=== PATIENT | female | born 1950 | race Two or more races ===

== ENCOUNTER 2021-09-18 10:29 | Emergency (ER) | payer OTHER, MEDICAID ==
[~2021-09-18] VITALS: Ht 147.3 cm; Wt 94.3 kg
[2021-09-18 17:51] VITALS: BP 145/76
== END 2021-09-18 17:06 | disposition home or self-care (01) ==
LOC: ER 10:29
DX: S96.911A Strain of unspecified muscle and tendon at ankle and foot level, right foot, initial encounter (principal); I83.91 Asymptomatic varicose veins of right lower extremity; E11.9 Type 2 diabetes mellitus without complications; X58.XXXA Exposure to other specified factors, initial encounter; Y93.89 Activity, other specified; Y92.89 Other specified places as the place of occurrence of the external cause; Y99.8 Other external cause status
CPT/HCPCS: 93926

== ENCOUNTER 2023-02-23 14:35 | Inpatient (IN) | payer OTHER, MEDICAID ==
[~2023-02-23] VITALS: Ht 147.3 cm; Wt 88.2 kg
[2023-02-23 15:04] LABS: Basophils # (auto) 0.1 10 ^3/uL (0-0.2); Basophils % (auto) 0.5 % (0.0-2.0); Eosinophils # (auto) 0.2 10 ^3/uL (0-0.8); Eosinophils % (auto) 1.6 % (0.0-7.0); Hematocrit 38.3 % (36.0-46.0); Hemoglobin 12.7 g/dL (12.2-16.2); Lymphocytes # (auto) 2.2 10 ^3/uL (0.4-5.4); Lymphocytes % (auto) 22.8 % (10.0-50.0); Mean Corpuscular Hemoglobin 28.6 pg (28.0-32.0); Mean Corpuscular Volume 86.7 fL (80.0-100.0); Monocytes # (auto) 0.6 10 ^3/uL (0-1.3); Monocytes % (auto) 5.8 % (0.0-12.0); Neutrophils # (auto) 6.6 10 ^3/uL (1.6-8.6); Neutrophils % (auto) 69.3 % (37.0-80.0); Red Blood Cells 4.42 10^6/uL (4.0-5.20); Red Cell Distribution Width 14.9 % (11.8-14.3); White Blood Cell 9.6 10^3/uL (4.4-10.8)
[2023-02-23 15:21] LABS: Alanine Aminotransferase 14 U/L (7-40); Albumin 4.4 g/dL (3.2-4.8); Alkaline Phosphatase 97 U/L (46-116); Anion Gap 6 (5-15); Aspartate Aminotransferase 19 U/L (13-40); BUN/Creatinine Ratio 13.4 (10.0-20.0); Blood Urea Nitrogen 11 mg/dL (9-23); Calcium 9.9 mg/dL (8.7-10.4); Carbon Dioxide 29 mmol/L (20-30); Chloride 104 mmol/L (98-107); Glucose 103 mg/dL (74-106); Potassium 4.5 mmol/L (3.5-5.1); Sodium 139 mmol/L (136-145)
[2023-02-23 15:22] LABS: Bilirubin, Total 0.6 mg/dL (0.2-1.0); INR 0.98 (0.9-1.15); Partial Thromboplastin Time 32.2 SEC (24.5-34.5); Prothrombin Time 10.3 sec (9.3-11.8); Total Protein 7.2 g/dL (5.7-8.2)
[2023-02-23] MEDS ORDERED: ASPirin 325 MG TAB PO ONE (16:45)
[2023-02-23] MEDS ORDERED: MORPHINE SULFATE INJ 2 MG/ml SYRG IV PRN (17:45)
[2023-02-23] MEDS ORDERED: DEXTROSE (50%) 50ML SYRG IV PRN (17:45)
[2023-02-23] MEDS ORDERED: NITROGLYCERIN 0.4 MG SL TAB SL PRN (17:45)
[2023-02-23] MEDS ORDERED: APIX5TAB PO (18:03)
[2023-02-23] MEDS ORDERED: LOVA20TA4 PO (18:03)
[2023-02-23] MEDS ORDERED: MEMA1TAB3 PO (18:03)
[2023-02-23] MEDS ORDERED: METF-372 PO (18:03)
[2023-02-23] MEDS ORDERED: DILT30TA PO (18:03)
[2023-02-23] MEDS ORDERED: LEVO-177 PO (18:03)
[2023-02-23] MEDS ORDERED: LISI40TA16 PO (18:03)
[2023-02-23 18:29] LABS: Triglycerides 151 mg/dL (< 150)
[2023-02-23 18:30] LABS: LDL Cholesterol 129 mg/dL (< 100)
[2023-02-23 18:31] LABS: Cholesterol 210 mg/dL (< 200); HDL Cholesterol 68 mg/dL (40-59)
[2023-02-23] MEDS: dilTIAZem HCL 60 MG TAB PO SCH (20:46)
[2023-02-23] MEDS: SODIUM CHLORIDE 0.9% 1,000 ML IV SCH (20:51)
[2023-02-23] MEDS: ACCU-CHEK COMFORT CURVE STRIP VI SCH (22:00)
[2023-02-23] MEDS: PRAVASTATIN SODIUM 20 MG TAB PO SCH (22:00)
[2023-02-23] MEDS: InsuLIN REG 1unit/0.01ml Soln (100units/ml) SC SCH (22:00)
[2023-02-23] MEDS: APIXABAN 5 MG TAB PO SCH (22:00)
[2023-02-23] MEDS: MEMANTINE HCL 5 MG TAB PO SCH (22:00)
[2023-02-23 22:20] VITALS: PULSE 72; RESP 20; O2SAT 98
[2023-02-23 23:45] VITALS: BP_SYST 141; BP_SYST 144; BP_DIAS 66; PULSE 56; RESP 18; TEMP 97.8; O2SAT 98
[2023-02-24] VITALS (7 sets, daily range): BP systolic 100–127; BP diastolic 47–78; PULSE 57–75; RESP 15–18; TEMP 98–98.4; O2SAT 95–98
[2023-02-24] MEDS: dilTIAZem HCL 60 MG TAB PO SCH ×3 (00:45→13:20)
[2023-02-24] MEDS ORDERED: DONE5TAB80 PO (03:39)
[2023-02-24] MEDS ORDERED: TRAZ-227 PO (03:39)
[2023-02-24] MEDS ORDERED: CHOL20002 PO (03:39)
[2023-02-24] MEDS: ACCU-CHEK COMFORT CURVE STRIP VI SCH ×4 (06:03→21:48)
[2023-02-24] MEDS: LEVOTHYROXINE SODIUM 88 MCG TAB PO SCH (06:16)
[2023-02-24 06:45] LABS: Basophils # (auto) 0 10 ^3/uL (0-0.2); Basophils % (auto) 0.5 % (0.0-2.0); Eosinophils # (auto) 0.2 10 ^3/uL (0-0.8); Hematocrit 37.6 % (36.0-46.0); Hemoglobin 12.2 g/dL (12.2-16.2); Lymphocytes # (auto) 2.4 10 ^3/uL (0.4-5.4); Lymphocytes % (auto) 27.9 % (10.0-50.0); Mean Corpuscular Hemoglobin 28.4 pg (28.0-32.0); Mean Corpuscular Hgb Conc. 32.5 g/dL (32.0-36.0); Mean Corpuscular Volume 87.4 fL (80.0-100.0); Monocytes # (auto) 0.5 10 ^3/uL (0-1.3); Monocytes % (auto) 6.1 % (0.0-12.0); Neutrophils # (auto) 5.4 10 ^3/uL (1.6-8.6); Neutrophils % (auto) 63.5 % (37.0-80.0); Red Cell Distribution Width 15.3 % (11.8-14.3); White Blood Cell 8.6 10^3/uL (4.4-10.8)
[2023-02-24 06:58] LABS: Alanine Aminotransferase 12 U/L (7-40); Alkaline Phosphatase 86 U/L (46-116); Anion Gap 8 (5-15); Aspartate Aminotransferase 17 U/L (13-40); Blood Urea Nitrogen 9 mg/dL (9-23); Calcium 9.7 mg/dL (8.5-10.1); Carbon Dioxide 27 mmol/L (20-30); Chloride 106 mmol/L (98-107); Glucose 97 mg/dL (74-106); Sodium 141 mmol/L (136-145)
[2023-02-24 06:59] LABS: Bilirubin, Total 0.6 mg/dL (0.2-1.0); Total Protein 6.8 g/dL (5.7-8.2)
[2023-02-24] MEDS: MEMANTINE HCL 5 MG TAB PO SCH ×2 (09:55→21:47)
[2023-02-24] MEDS: LISINOPRIL 20 MG TAB PO SCH (09:55)
[2023-02-24] MEDS: SODIUM CHLORIDE 0.9% 1,000 ML IV SCH (09:56)
[2023-02-24] MEDS: ASPirin 81 mg TAB PO SCH (09:56)
[2023-02-24] MEDS: APIXABAN 5 MG TAB PO SCH (09:56)
[2023-02-24] MEDS ORDERED: ENOXAPARIN SOD 40 MG/0.4 ML SYRINGE SC SCH (10:00)
[2023-02-24] MEDS: InsuLIN REG 1unit/0.01ml Soln (100units/ml) SC SCH ×3 (11:30→21:52)
[2023-02-24] MEDS: ACETAMINOPHEN 325 MG TAB PO PRN (15:23)
[2023-02-24] MEDS: PRAVASTATIN SODIUM 20 MG TAB PO SCH (21:47)
[2023-02-24] MEDS: ENOXAPARIN SOD 100 MG/1 ML SYRINGE SC SCH (21:48)
[2023-02-25] VITALS (11 sets, daily range): BP systolic 113–145; BP diastolic 60–80; PULSE 57–78; RESP 16–18; TEMP 97.8–98.2; O2SAT 93–99
[2023-02-25] MEDS: SODIUM CHLORIDE 0.9% 1,000 ML IV SCH ×2 (03:08→19:45)
[2023-02-25 04:58] LABS: Urine Bacteria FEW /hpf (None Seen); Urine Blood 3+ /uL (Negative); Urine Clarity Clear (Clear); Urine Color Colorless (Yellow); Urine Protein, UAD Negative (Negative); Urine Specific Gravity 1.008 (1.001-1.035); Urine Urobilinogen Normal (Negative); Urine WBC 1 /hpf (0 - 5)
[2023-02-25 05:48] LABS: Basophils # (auto) 0 10 ^3/uL (0-0.2); Basophils % (auto) 0.6 % (0.0-2.0); Eosinophils # (auto) 0.1 10 ^3/uL (0-0.8); Eosinophils % (auto) 2.2 % (0.0-7.0); Hematocrit 39.2 % (36.0-46.0); Hemoglobin 12.8 g/dL (12.2-16.2); Lymphocytes % (auto) 28.7 % (10.0-50.0); Mean Corpuscular Hemoglobin 28.7 pg (28.0-32.0); Mean Corpuscular Hgb Conc. 32.6 g/dL (32.0-36.0); Monocytes # (auto) 0.4 10 ^3/uL (0-1.3); Monocytes % (auto) 5.3 % (0.0-12.0); Neutrophils # (auto) 4.3 10 ^3/uL (1.6-8.6); Neutrophils % (auto) 63.2 % (37.0-80.0); Nucleated Red Blood Cells % 0.1 %; Red Blood Cells 4.45 10^6/uL (4.0-5.20); Red Cell Distribution Width 14.8 % (11.8-14.3); White Blood Cell 6.8 10^3/uL (4.4-10.8)
[2023-02-25 05:58] LABS: Anion Gap 5 (5-15); Carbon Dioxide 27 mmol/L (20-30); Chloride 107 mmol/L (98-107); Potassium 4.2 mmol/L (3.5-5.1); Sodium 139 mmol/L (136-145)
[2023-02-25 05:59] LABS: Calcium 9.2 mg/dL (8.7-10.4)
[2023-02-25 06:03] LABS: INR 1.02 (0.9-1.15); Prothrombin Time 10.7 sec (9.3-11.8)
[2023-02-25 06:04] LABS: Blood Urea Nitrogen 8 mg/dL (9-23); Glucose 105 mg/dL (74-106)
[2023-02-25] MEDS: LEVOTHYROXINE SODIUM 88 MCG TAB PO SCH (06:40)
[2023-02-25] MEDS: ACCU-CHEK COMFORT CURVE STRIP VI SCH ×4 (06:40→22:09)
[2023-02-25] MEDS: InsuLIN REG 1unit/0.01ml Soln (100units/ml) SC SCH ×4 (06:40→22:00)
[2023-02-25] MEDS: dilTIAZem 120MG ER CAP PO SCH (09:57)
[2023-02-25] MEDS: MEMANTINE HCL 5 MG TAB PO SCH ×2 (09:58→22:09)
[2023-02-25] MEDS: LISINOPRIL 20 MG TAB PO SCH (09:58)
[2023-02-25] MEDS: ASPirin 81 mg TAB PO SCH (09:58)
[2023-02-25] MEDS: ENOXAPARIN SOD 100 MG/1 ML SYRINGE SC SCH ×2 (09:58→22:08)
[2023-02-25] MEDS ORDERED: LORazepam 2MG/ML-1ML VIAL IV ONE (12:15)
[2023-02-25] MEDS ORDERED: LIDOCAINE 2%HCL (LOCAL ANESTH.) INJ 20ML MDV ONE (14:42)
[2023-02-25] MEDS ORDERED: IODIXANOL 320MG/ML 100ML BTL IV ONE (14:42)
[2023-02-25] MEDS ORDERED: VERAPAMIL 2.5MG/ML INJ 2ML VIAL IV ONE (14:47)
[2023-02-25] MEDS ORDERED: HEPARIN SODIUM (PORCINE) 5000 UNITS/ML 1ML VIAL ONE (14:47)
[2023-02-25] MEDS ORDERED: ANGIOMAX 250 MG VIAL IV ONE (14:47)
[2023-02-25] MEDS ORDERED: fentaNYL CITRATE 100 MCG/2 ML VL ONE (14:48)
[2023-02-25] MEDS ORDERED: SODIUM CHL 0.9% 0 ML ONE (14:48)
[2023-02-25] MEDS ORDERED: MIDAZOLAM HCL 2MG/2ML 2ml VIAL (1mg/ml) ONE (14:48)
[2023-02-25] MEDS: PRAVASTATIN SODIUM 20 MG TAB PO SCH (22:08)
[2023-02-26] MEDS: SODIUM CHLORIDE 0.9% 1,000 ML IV SCH (04:46)
[2023-02-26 05:00] VITALS: BP 132/62; PULSE 62; RESP 16; TEMP 98.2; O2SAT 96
[2023-02-26] MEDS: InsuLIN REG 1unit/0.01ml Soln (100units/ml) SC SCH ×2 (06:32→11:30)
[2023-02-26] MEDS: LEVOTHYROXINE SODIUM 88 MCG TAB PO SCH (06:32)
[2023-02-26] MEDS: ACCU-CHEK COMFORT CURVE STRIP VI SCH ×2 (06:32→11:30)
[2023-02-26 08:00] VITALS: BP 120/78; PULSE 66; PULSE 77; RESP 17; TEMP 98.4; O2SAT 98
[2023-02-26 08:41] VITALS: BP 120/78; PULSE 66; RESP 17; TEMP 98.4; O2SAT 98
[2023-02-26] MEDS: dilTIAZem 120MG ER CAP PO SCH (09:26)
[2023-02-26] MEDS: LISINOPRIL 20 MG TAB PO SCH (09:26)
[2023-02-26] MEDS: ASPirin 81 mg TAB PO SCH (09:26)
[2023-02-26] MEDS: ACETAMINOPHEN 325 MG TAB PO PRN (09:26)
[2023-02-26] MEDS: MEMANTINE HCL 5 MG TAB PO SCH (09:27)
[2023-02-26] MEDS: ENOXAPARIN SOD 100 MG/1 ML SYRINGE SC SCH (09:27)
[2023-02-26] MEDS ORDERED: DILT120T8 PO (11:30)
[2023-02-26 12:29] VITALS: BP 132/75; PULSE 68; RESP 18; TEMP 98.7; O2SAT 92
[2023-02-26 12:34] VITALS: BP 120/78; PULSE 66; TEMP 37.1
[2023-03-04] MEDS ORDERED: LEVO112C3 PO (10:12)
[2023-03-04] MEDS ORDERED: BACL20TA PO (10:12)
== END 2023-02-26 15:24 | disposition home or self-care (01) | DRG 286 ==
LOC: ER 14:35 → TELE 18:02 → TELE-WESTW 22:49
PROVIDERS: ADMIT Nurse Practitioner Family; ATTEND Family Medicine
PROC: 4A023N7 Measurement of Cardiac Sampling and Pressure, Left Heart, Percutaneous Approach (ICD-10-PCS; principal; 2023-02-25)
PROC: B211YZZ Fluoroscopy of Multiple Coronary Arteries using Other Contrast (ICD-10-PCS; 2023-02-25)
PROC: B215YZZ Fluoroscopy of Left Heart using Other Contrast (ICD-10-PCS; 2023-02-25)
DX: I25.10 Atherosclerotic heart disease of native coronary artery without angina pectoris (principal); I50.31 Acute diastolic (congestive) heart failure; I24.9 Acute ischemic heart disease, unspecified; Z68.41 Body mass index [BMI] 40.0-44.9, adult; I10 Essential (primary) hypertension; E03.9 Hypothyroidism, unspecified; E66.01 Morbid (severe) obesity due to excess calories; I48.91 Unspecified atrial fibrillation; E78.00 Pure hypercholesterolemia, unspecified; E11.51 Type 2 diabetes mellitus with diabetic peripheral angiopathy without gangrene; F03.90 Unspecified dementia, unspecified severity, without behavioral disturbance, psychotic disturbance, mood disturbance, and anxiety; E11.9 Type 2 diabetes mellitus without complications; R00.0 Tachycardia, unspecified; M81.0 Age-related osteoporosis without current pathological fracture; Z79.899 Other long term (current) drug therapy; Z82.49 Family history of ischemic heart disease and other diseases of the circulatory system; Z95.820 Peripheral vascular angioplasty status with implants and grafts; Z71.3 Dietary counseling and surveillance
CPT/HCPCS: 36415; 70450; 71045; 80048; 80053; 80061; 81001; 82962; 83036; 84443; 84484; 85025; 85379; 85610; 85730; 86850; 86900; 86901; 87081; 93005; 93306; 93458; 93970; 99152; G0378; J2250; Q9967

== ENCOUNTER 2023-03-10 13:03 | Day surgery (SDC) | payer OTHER, MEDICAID ==
[2023-03-04 10:16] LABS: Basophils # (auto) 0 10 ^3/uL (0-0.2); Basophils % (auto) 0.6 % (0.0-2.0); Eosinophils # (auto) 0.1 10 ^3/uL (0-0.8); Eosinophils % (auto) 1.5 % (0.0-7.0); Hematocrit 40.1 % (36.0-46.0); Hemoglobin 13.2 g/dL (12.2-16.2); Lymphocytes # (auto) 1.5 10 ^3/uL (0.4-5.4); Lymphocytes % (auto) 20.3 % (10.0-50.0); Mean Corpuscular Hemoglobin 29.2 pg (28.0-32.0); Mean Corpuscular Volume 88.4 fL (80.0-100.0); Monocytes # (auto) 0.4 10 ^3/uL (0-1.3); Monocytes % (auto) 5.2 % (0.0-12.0); Neutrophils # (auto) 5.3 10 ^3/uL (1.6-8.6); Neutrophils % (auto) 72.4 % (37.0-80.0); Red Blood Cells 4.53 10^6/uL (4.0-5.20); Red Cell Distribution Width 15.5 % (11.8-14.3); White Blood Cell 7.3 10^3/uL (4.4-10.8)
[2023-03-04 10:41] LABS: INR 0.97 (0.9-1.15); Prothrombin Time 10.2 sec (9.3-11.8)
[2023-03-04 11:11] LABS: Alanine Aminotransferase 18 U/L (7-40); Alkaline Phosphatase 102 U/L (46-116); Anion Gap 9 (5-15); Calcium 10.1 mg/dL (8.5-10.1); Carbon Dioxide 26 mmol/L (20-30); Chloride 104 mmol/L (98-107); Glucose 116 mg/dL (74-106); Potassium 4.9 mmol/L (3.5-5.1); Sodium 139 mmol/L (136-145)
[2023-03-04 11:12] LABS: BUN/Creatinine Ratio 15.7 (10.0-20.0); Blood Urea Nitrogen 14 mg/dL (9-23)
[2023-03-04 11:13] LABS: Albumin 4.6 g/dL (3.2-4.8); Aspartate Aminotransferase 10 U/L (13-40)
[2023-03-04 11:14] LABS: Bilirubin, Total 0.6 mg/dL (0.2-1.0); Total Protein 7.7 g/dL (5.7-8.2)
[~2023-03-10] VITALS: Ht 147.3 cm; Wt 89.4 kg
[~2023-03-10 13:03] MED LIST: APIX5TAB PO; BACL20TA PO; CHOL20002 PO; DILT120T8 PO; DONE5TAB80 PO; LEVO112C3 PO; LISI40TA16 PO; LOVA20TA4 PO; MEMA1TAB3 PO; METF-372 PO; TRAZ-227 PO
[2023-03-10] MEDS ORDERED: LIDOCAINE VISCOUS 2% 15ML UD ONE (13:44)
[2023-03-10] MEDS ORDERED: SODIUM CHLORIDE LOCK 10 ML ONE (13:44)
[2023-03-10 14:45] VITALS: O2SAT 98
[2023-03-10] MEDS: MIDAZOLAM HCL 5 MG/ML-1ML VIAL ONE ×2 (14:53→14:57)
[2023-03-10] MEDS: diphenhdrAMINE HCL 50 MG/1 ML VL ONE ×2 (14:53→14:55)
[2023-03-10] MEDS: fentaNYL CITRATE 100 MCG/2 ML VL ONE ×2 (14:53→15:00)
[2023-03-10 15:06] VITALS: TEMP 97.4; O2SAT 97
[2023-03-10 15:46] VITALS: BP 117/55; PULSE 62; RESP 13; O2SAT 95
== END 2023-03-10 15:50 | disposition home or self-care (01) ==
LOC: GI 13:03
PROVIDERS: ATTEND Internal Medicine Gastroenterology
DX: K21.9 Gastro-esophageal reflux disease without esophagitis (principal); R13.12 Dysphagia, oropharyngeal phase; K44.9 Diaphragmatic hernia without obstruction or gangrene; K29.90 Gastroduodenitis, unspecified, without bleeding; K25.9 Gastric ulcer, unspecified as acute or chronic, without hemorrhage or perforation
CPT/HCPCS: 36415; 43239; 43450; 80053; 82962; 85025; 85610; 85730; 88305; 88312; 88342; J1200; J2250; J3010; J7030

== ENCOUNTER → 2023-03-24 | Outpatient (CLI) | payer OTHER ==
[2023-03-24 09:03] VITALS: BP 146/70; PULSE 62; RESP 16; O2SAT 96
[2023-03-24 09:18] VITALS: BP 129/67; PULSE 62; RESP 16; O2SAT 96
== END | disposition home or self-care (01) ==
LOC: CHF HDHVI 08:53
PROVIDERS: ATTEND Internal Medicine Cardiovascular Disease
DX: Z01.818 Encounter for other preprocedural examination (principal); I49.9 Cardiac arrhythmia, unspecified; R06.02 Shortness of breath; I25.110 Atherosclerotic heart disease of native coronary artery with unstable angina pectoris
CPT/HCPCS: 93005; G0463

== ENCOUNTER 2023-03-25 07:05 | Day surgery (SDC) | payer OTHER, MEDICAID ==
[2023-03-24 11:25] LABS: Basophils # (auto) 0 10 ^3/uL (0-0.2); Basophils % (auto) 0.6 % (0.0-2.0); Eosinophils # (auto) 0.1 10 ^3/uL (0-0.8); Eosinophils % (auto) 1.1 % (0.0-7.0); Hematocrit 40.3 % (36.0-46.0); Hemoglobin 13.2 g/dL (12.2-16.2); Lymphocytes # (auto) 2.1 10 ^3/uL (0.4-5.4); Mean Corpuscular Hemoglobin 28.8 pg (28.0-32.0); Mean Corpuscular Hgb Conc. 32.7 g/dL (32.0-36.0); Monocytes # (auto) 0.4 10 ^3/uL (0-1.3); Monocytes % (auto) 5.2 % (0.0-12.0); Neutrophils # (auto) 5.6 10 ^3/uL (1.6-8.6); Neutrophils % (auto) 68.1 % (37.0-80.0); Nucleated Red Blood Cells % 0.1 %; Red Blood Cells 4.58 10^6/uL (4.0-5.20); Red Cell Distribution Width 15.1 % (11.8-14.3); White Blood Cell 8.2 10^3/uL (4.4-10.8)
[2023-03-24 11:42] LABS: INR 0.98 (0.9-1.15); Partial Thromboplastin Time 28.2 SEC (24.5-34.5); Prothrombin Time 10.3 sec (9.3-11.8)
[2023-03-24 11:43] LABS: Chloride 105 mmol/L (98-107); Potassium 4.5 mmol/L (3.5-5.1); Sodium 139 mmol/L (136-145)
[2023-03-24 11:44] LABS: Anion Gap 5 (5-15); Calcium 10.3 mg/dL (8.5-10.1); Carbon Dioxide 29 mmol/L (20-30)
[2023-03-24 11:49] LABS: BUN/Creatinine Ratio 12.5 (10.0-20.0); Blood Urea Nitrogen 10 mg/dL (9-23); Glucose 105 mg/dL (74-106)
[2023-03-25] VITALS (8 sets, daily range): BP systolic 89–115; BP diastolic 39–67; PULSE 65–69; RESP 11–14; TEMP 97.8; O2SAT 91–93
[~2023-03-25] VITALS: Ht 147.3 cm; Wt 89.4 kg
[2023-03-25] MEDS ORDERED: MIDAZOLAM HCL 2MG/2ML 2ml VIAL (1mg/ml) ONE (10:16)
[2023-03-25] MEDS ORDERED: LIDOCAINE 2%HCL (LOCAL ANESTH.) INJ 20ML MDV ONE (10:16)
[2023-03-25] MEDS ORDERED: VANCOMYCIN HCL 1000 MG VL ONE (10:16)
[2023-03-25] MEDS ORDERED: fentaNYL CITRATE 100 MCG/2 ML VL ONE (10:16)
[2023-03-25] MEDS ORDERED: VANCOMYCIN 1GM/200ML 200 ML IV ONE (10:17)
[2023-03-25] MEDS ORDERED: HYDROmorphone HCL 2 MG/ML VL/or syr ONE (11:06)
== END 2023-03-25 14:08 | disposition home or self-care (01) ==
LOC: CATH 07:05
PROVIDERS: ATTEND Internal Medicine Cardiovascular Disease
DX: I44.30 Unspecified atrioventricular block (principal); F41.8 Other specified anxiety disorders; Z82.49 Family history of ischemic heart disease and other diseases of the circulatory system; Z98.890 Other specified postprocedural states
CPT/HCPCS: 33208; 36415; 71045; 80048; 85025; 85610; 85730; 93005; C1785; C1898; J1170; J2250; J3010; J3370; J7030; 99152; 99153

== ENCOUNTER 2023-12-21 10:26 | Day surgery (SDC) | payer OTHER, MEDICAID ==
[2023-12-17 15:35] LABS: Basophils # (auto) 0 10 ^3/uL (0-0.2); Basophils % (auto) 0.6 % (0.0-2.0); Eosinophils # (auto) 0.1 10 ^3/uL (0-0.8); Eosinophils % (auto) 1.4 % (0.0-7.0); Hematocrit 37.4 % (36.0-46.0); Hemoglobin 12.4 g/dL (12.2-16.2); Lymphocytes # (auto) 1.7 10 ^3/uL (0.4-5.4); Lymphocytes % (auto) 24.6 % (10.0-50.0); Mean Corpuscular Hemoglobin 29.1 pg (28.0-32.0); Mean Corpuscular Hgb Conc. 33.1 g/dL (32.0-36.0); Monocytes # (auto) 0.5 10 ^3/uL (0-1.3); Monocytes % (auto) 6.9 % (0.0-12.0); Neutrophils # (auto) 4.6 10 ^3/uL (1.6-8.6); Neutrophils % (auto) 66.5 % (37.0-80.0); Platelet Count (auto) 271 10^3/uL (140-450); Red Blood Cells 4.26 10^6/uL (4.0-5.20); Red Cell Distribution Width 14.6 % (11.8-14.3)
[2023-12-17 15:56] LABS: Alanine Aminotransferase 14 U/L (7-40); Albumin 4.2 g/dL (3.2-4.8); Alkaline Phosphatase 115 U/L (46-116); Anion Gap 5 (5-15); Aspartate Aminotransferase 11 U/L (13-40); BUN/Creatinine Ratio 14.3 (10.0-20.0); Blood Urea Nitrogen 13 mg/dL (9-23); Carbon Dioxide 30 mmol/L (20-31); Chloride 108 mmol/L (98-107); Glucose 95 mg/dL (74-106); Potassium 4.2 mmol/L (3.5-5.1); Sodium 143 mmol/L (136-145)
[2023-12-17 15:57] LABS: Bilirubin, Total 0.6 mg/dL (0.2-1.0); Total Protein 7.1 g/dL (5.7-8.2)
[2023-12-17 16:25] LABS: INR 0.97 (0.9-1.15); Partial Thromboplastin Time 27.9 SEC (24.5-34.5); Prothrombin Time 10.3 sec (9.3-11.8)
[~2023-12-21] VITALS: Ht 147.3 cm; Wt 84.8 kg
[~2023-12-21 10:26] MED LIST changes: +AMIO200T33 PO; -DILT120T8 PO; +LORA-622 PO; +OME20T PO
[2023-12-21 10:35] VITALS: TEMP 97.5
[2023-12-21] MEDS ORDERED: SODIUM CHLORIDE LOCK 10 ML ONE (11:13)
[2023-12-21 11:50] VITALS: O2SAT 97
[2023-12-21] MEDS: MIDAZOLAM HCL 5 MG/ML-1ML VIAL ONE (11:52)
[2023-12-21] MEDS: fentaNYL CITRATE 100 MCG/2 ML VL ONE (11:52)
[2023-12-21] MEDS: diphenhdrAMINE HCL 50 MG/1 ML VL ONE (11:52)
[2023-12-21 12:08] VITALS: PULSE 70; RESP 14; O2SAT 98
--- NOTE | 2023-12-21 12:21 | DVHOP2 ---
Operative Report DATE OF OPERATION: 12/21/23 PROCEDURE: Diagnostic Colonoscopy. PREOPERATIVE INDICATION: The patient is a 73 -year-old female undergoing colonoscopy for colon cancer screening POSTOPERATIVE DIAGNOSES: 1. Moderate scattered diverticular disease most prominent in the left colon 2. Trace internal hemorrhoids otherwise normal examination up to the cecum and terminal ileum PROCEDURE PERFORMED BY: Bettye De León M.D. SCOPE: Olympus videocolonoscope. ASA CLASS: 3. PREOPERATIVE MEDICATIONS: Versed three mg, Fentanyl 75 mcg, Benadryl 50 mg PROCEDURE IN DETAIL: After obtaining an informed consent, the patient was placed on left lateral decubitus position. She was then sedated with the above medications. A rectal examination was performed that was normal. The colonoscope was then passed through the anus into the rectosigmoid and through the descending, transverse, and ascending colon up to the cecum with visualization of the appendiceal orifice, base of the cecum and the ileocecal valve. The colonoscope was then withdrawn. The distal 5-10 cm of the terminal ileum were normal. There were no masses or colitis. There were no polyps. Patient did have moderate scattered diverticular disease. This was most prominent in the left colon. On retroflexion and straight on view she had trace internal hemorrhoids The patient tolerated the procedure well without difficulty. WITHDRAWAL TIME: 6 minutes QUALITY OF THE PREP: [place] Bowel Prep score: 9. COMPLICATIONS : None SPECIMENS: None DISPOSITION: Stable D/C to home PLAN: 1. Repeat colonoscopy in 10 years 2. Resume GI soft diet advance as tolerated 3. Increase fluid and fiber intake 4. Outpatient follow up with me in 4-6 weeks to review results and discuss further management BETTYE DE LEÓN MD Dec 21, 2023 12:21
[2023-12-21 13:00] VITALS: BP 150/56; PULSE 65; RESP 13; O2SAT 97
== END 2023-12-21 13:10 | disposition home or self-care (01) ==
LOC: GI 10:26
PROVIDERS: ATTEND Internal Medicine Gastroenterology
DX: Z12.11 Encounter for screening for malignant neoplasm of colon (principal); K57.30 Diverticulosis of large intestine without perforation or abscess without bleeding; K64.8 Other hemorrhoids; I10 Essential (primary) hypertension; E11.9 Type 2 diabetes mellitus without complications; I25.10 Atherosclerotic heart disease of native coronary artery without angina pectoris; E03.9 Hypothyroidism, unspecified; Z79.899 Other long term (current) drug therapy; Z86.73 Personal history of transient ischemic attack (TIA), and cerebral infarction without residual deficits; Z86.0100 Personal history of colon polyps, unspecified; Z95.0 Presence of cardiac pacemaker; Z79.82 Long term (current) use of aspirin
CPT/HCPCS: 36415; 45378; 80053; 82962; 85025; 85610; 85730; J1200; J2250; J3010; J7030; 99152

== ENCOUNTER 2024-05-03 09:58 | Inpatient (IN) | payer OTHER, MEDICAID ==
[2024-05-01 14:19] LABS: Basophils # (auto) 0 10 ^3/uL (0-0.2); Basophils % (auto) 0.5 % (0.0-2.0); Eosinophils # (auto) 0.1 10 ^3/uL (0-0.8); Eosinophils % (auto) 1.3 % (0.0-7.0); Hematocrit 40.1 % (36.0-46.0); Hemoglobin 13.4 g/dL (12.2-16.2); Lymphocytes % (auto) 25.8 % (10.0-50.0); Mean Corpuscular Hemoglobin 29.8 pg (28.0-32.0); Mean Corpuscular Hgb Conc. 33.3 g/dL (32.0-36.0); Mean Corpuscular Volume 89.5 fL (80.0-100.0); Monocytes # (auto) 0.4 10 ^3/uL (0-1.3); Neutrophils # (auto) 5.2 10 ^3/uL (1.6-8.6); Neutrophils % (auto) 67.4 % (37.0-80.0); Platelet Count (auto) 264 10^3/uL (140-450); Red Blood Cells 4.48 10^6/uL (4.0-5.20); Red Cell Distribution Width 14.4 % (11.8-14.3); White Blood Cell 7.7 10^3/uL (4.4-10.8)
[2024-05-01 14:23] LABS: Urine Bacteria FEW /hpf (None Seen); Urine Blood TRACE /uL (Negative); Urine Clarity Clear (Clear); Urine Color Light-Yellow (Yellow); Urine Protein, UAD Negative (Negative); Urine Specific Gravity 1.011 (1.001-1.035); Urine Squamous Epithelial Cell FEW /hpf (<5); Urine Urobilinogen Normal (Negative); Urine WBC 2 /HPF (0-5); Urine pH 5.5 (5.0-9.0)
[2024-05-01 14:34] LABS: INR 0.95 (0.9-1.15); Prothrombin Time 10.1 sec (9.3-11.8)
[2024-05-01 15:32] LABS: Alanine Aminotransferase 13 U/L (7-40); Alkaline Phosphatase 102 U/L (46-116); Anion Gap 7 (5-15); Aspartate Aminotransferase 16 U/L (13-40); Bilirubin, Total 0.9 mg/dL (0.2-1.0); Blood Urea Nitrogen 13 mg/dL (9-23); Carbon Dioxide 30 mmol/L (20-31); Chloride 102 mmol/L (98-107); Glucose 103 mg/dL (74-106); Potassium 4.4 mmol/L (3.5-5.1); Sodium 139 mmol/L (136-145); Total Protein 7.7 g/dL (5.7-8.2)
[2024-05-01 15:35] LABS: Albumin 4.8 g/dL (3.2-4.8); Calcium 10.9 mg/dL (8.7-10.4)
[~2024-05-03] VITALS: Ht 147.3 cm; Wt 100.5 kg
[~2024-05-03 09:58] MED LIST changes: +DONE1TAB88 PO; -DONE5TAB80 PO; -MEMA1TAB3 PO; +MEMA1TAB5 PO; -TRAZ-227 PO; +TRAZ-228 PO
[2024-05-03] MEDS: BUPIVACAINE 0.5% P/F INJ 10 ML VIAL ONE (12:41)
[2024-05-03] MEDS ORDERED: SODIUM CHLORIDE LOCK 10 ML ONE (12:46)
[2024-05-03] MEDS ORDERED: ONDANSETRON HCL 4 MG/2 ML VIAL ONE (12:46)
[2024-05-03] MEDS ORDERED: MIDAZOLAM HCL 2MG/2ML 2ml VIAL (1mg/ml) ONE (12:46)
[2024-05-03] MEDS ORDERED: PROPOFOL 10 MG/ML 20 ML IV ONE (12:46)
[2024-05-03] MEDS ORDERED: LIDOCAINE 1% INJ PF 5ML AMP ONE (12:46)
[2024-05-03] MEDS ORDERED: fentaNYL CITRATE 100 MCG/2 ML VL ONE (12:46)
[2024-05-03] MEDS: ceFAZolin 2 GM/D5W100ml 100 ML IV ONE (13:05)
[2024-05-03 14:10] VITALS: O2SAT 95
[2024-05-03] MEDS ORDERED: METOCLOPRAMIDE HCL 5MG/ml INJ 2ml VIAL IV ONE (14:30)
[2024-05-03] MEDS ORDERED: ACCU-CHEK COMFORT CURVE STRIP VI ONE (14:30)
[2024-05-03] MEDS ORDERED: HYDROmorphone HCL 2 MG/ML VL/or syr IV PRN ×2 (14:30)
[2024-05-03] MEDS ORDERED: MORPHINE SULFATE INJ 2 MG/ml SYRG IV PRN (14:30)
[2024-05-03] MEDS ORDERED: MORPHINE SULFATE 4 MG/ML SYR/VIAL IV PRN (14:30)
[2024-05-03] MEDS ORDERED: NITROGLYCERIN 0.4 MG SL TAB SL PRN (14:30)
[2024-05-03] MEDS ORDERED: LACTATED RINGER'S 1,000 ML IV SCH (14:30)
[2024-05-03] MEDS ORDERED: ONDANSETRON HCL 4 MG/2 ML VIAL IV PRN (14:30)
[2024-05-03] MEDS ORDERED: BISACODYL 5 MG EC TAB PO PRN (14:30)
--- NOTE | 2024-05-03 14:30 | DVHOP2 ---
Operative Report - 2 Report Details Date: 05/03/24 Preop Diagnosis: Right knee patella fracture Postop Diagnosis: same Surgeon: Jasper Petit MD Rn Imcu: none Anesthesiologist: Dr Ortiz Anesthesia: Regional Drains: none Implant: two cannulated screws Consent: The patient was informed of the risks and benefits of the procedure. These include but are not limited to complications of anesthesia, postoperative infection, incomplete relief of symptoms, recurrence of symptoms, damage to blood vessels, nerves and tendons, deep venous thrombosis, pulmonary embolism and possible need for repeat surgery in the future. Complications: none Estimated Blood Loss: 20 cc Fluids: 1 L crystalloid Findings: patella fracture, inferior 1/3, chronic with 1 cm gap, scar Indications for Surgery: Right leg extensor lag, requiring knee immobilizer for ambulation with walker Name of Procedure Performed Right patella open reduction internal fixation Procedure Details Procedure Details: Patient brought to the operating room received Ancef 1 g IV piggyback preoperatively no tourniquet on right thigh sterile prep and drape right lower extremity time-out performed comprehension right-sided correct site open reduction internal fixation of right patella fracture correct procedure after review of operative consent history and physical my initials and right knee anterior incision made centered over patella for a total length of 10 cm sharp dissection through skin down to deep fascia the need point needle point Bovie cautery used to elevate the fascia off the anterior aspect of the patella and the inferior patellar fragment curettage then used to remove scar from fracture site then arthrotomy was made on the medial capsule for digital palpation while a orthopedic reduction clamp was placed across the fracture with no step-off palpated manually C-arm fluoro confirmed anatomic alignment of fracture and two cannulated screws placed vertically and parallel across fracture then [place] tape passed through these cannulated screws and then tied together in a figure- eight fashion C-arm fluoro taken again showing anatomic alignment of fracture digital palpation shows no step-off and I could flex the knee to 90 with no gapping of fracture excellent hemostasis noted irrigation performed closure subcutaneous 2-0 Vicryl and skin jay no drains specimens complications Specimen: none Condition Stable Disposition Still a Patient JASPER PETIT MD May 03, 2024 14:30
--- NOTE | 2024-05-03 14:38 | DVH ---
FLUOROSCOPY TIME: 21 seconds TECHNIQUE: Intraoperative radiographs of the right knee were obtained. COMPARISON: XY R KNEE 3V XRAY on DOS: 06/20/23 FINDINGS: Refer to intraoperative report for further evaluation. IMPRESSION: Refer to intraoperative report for further evaluation.
[2024-05-03 16:31] VITALS: BP 120/57; PULSE 66; RESP 17; TEMP 98.1; O2SAT 98
--- NOTE | 2024-05-03 16:32 | DVHHP2 ---
Review of Systems Allergies: Coded Allergies: NO KNOWN ALLERGIES (Unverified , 03/24/23) Medications Current Medications Medications Dose Ordered Sig/Lorna Route Start Time Stop Time Status Last Admin Dose Admin Morphine Sulfate 2 mg Q4H PRN IV 05/03/24 14:30 05/03/24 18:31 Lactated Ringer's 1,000 ml @ 100 mls/hr Q10H IV 05/03/24 14:30 Cefazolin Sodium 50 ml @ 50 mls/hr Q6H IV 05/03/24 14:30 05/04/24 03:29 Acetaminophen 650 mg Q6HP PRN PO 05/03/24 14:30 Ondansetron HCl 4 mg Q6HP PRN IV 05/03/24 14:30 Bisacodyl 5 mg Q12HP PRN PO 05/03/24 14:30 Nitroglycerin 0.4 mg Q5MINP PRN SL 05/03/24 14:30 Exam Vital Signs Vital Signs Date Time Temp Pulse Resp B/P (MAP) Pulse Ox O2 Delivery O2 Flow Rate FiO2 05/03/24 12:00 97.0 69 16 130/66 (87) 97 97.0 Labs/Xrays Labs Test 05/03/24 14:17 05/01/24 13:59 Range/Units POC Glucose 104 70-106 mg/dl White Blood Count 7.7 4.4-10.8 10^3/uL Red Blood Count 4.48 4.0-5.20 10^6/uL Hemoglobin 13.4 12.2-16.2 g/dL Hematocrit 40.1 36.0-46.0 % Mean Corpuscular Volume 89.5 80.0-100.0 fL Mean Corpuscular Hemoglobin 29.8 28.0-32.0 pg Mean Corpuscular Hemoglobin Concent 33.3 32.0-36.0 g/dL Red Cell Distribution Width 14.4 H 11.8-14.3 % Platelet Count 264 140-450 10^3/uL Mean Platelet Volume 7.1 6.9-10.8 fL Neutrophils (%) (Auto) 67.4 37.0-80.0 % Lymphocytes (%) (Auto) 25.8 10.0-50.0 % Monocytes (%) (Auto) 5.0 0.0-12.0 % Eosinophils (%) (Auto) 1.3 0.0-7.0 % Basophils (%) (Auto) 0.5 0.0-2.0 % Neutrophils # (Auto) 5.2 1.6-8.6 10 ^3/uL Lymphocytes # (Auto) 2.0 0.4-5.4 10 ^3/uL Monocytes # (Auto) 0.4 0-1.3 10 ^3/uL Eosinophils # (Auto) 0.1 0-0.8 10 ^3/uL Basophils # (Auto) 0 0-0.2 10 ^3/uL Nucleated Red Blood Cells 0.0 % Prothrombin Time 10.1 9.3-11.8 sec Prothrombin Time INR 0.95 0.9-1.15 Activated Partial Thromboplast Time 27.0 24.5-34.5 SEC Urine Color Light-yellow Yellow Urine Clarity Clear Clear Urine pH 5.5 5.0-9.0 Urine Specific [place] 1.011 1.001-1.035 Urine Protein Negative Negative Urine Ketones Negative Negative Urine Blood Trace H Negative /uL Urine Nitrite Negative Negative Urine Bilirubin Negative Negative Urine Urobilinogen Normal Negative mg/dL Urine Leukocyte Esterase Negative Negative /uL Urine RBC 1 0 - 4 /hpf Urine Microscopic WBC 2 0-5 /HPF Urine Squamous Epithelial Cells Few <5 /hpf Urine Bacteria Few H None Seen /hpf Urine Glucose Normal Normal mg/dL Sodium Level 139 136-145 mmol/L Potassium Level 4.4 3.5-5.1 mmol/L Chloride Level 102 98-107 mmol/L Carbon Dioxide Level 30 20-31 mmol/L Anion Gap 7 5-15 Blood Urea Nitrogen 13 9-23 mg/dL Creatinine 0.93 0.550-1.02 mg/dL Glomerular Filtration Rate Calc 66 >90 mL/min BUN/Creatinine Ratio 14.0 10.0-20.0 Serum Glucose 103 74-106 mg/dL Calcium Level 10.9 H 8.7-10.4 mg/dL Total Bilirubin 0.9 0.2-1.0 mg/dL Aspartate Amino Transferase (AST) 16 13-40 U/L Alanine Aminotransferase (ALT) 13 7-40 U/L Alkaline Phosphatase 102 46-116 U/L Total Protein 7.7 5.7-8.2 g/dL Albumin 4.8 3.2-4.8 g/dL Assessment/Plan Assessment/Plan SEE DICTATED NOTE Plan discussed with: Patient Date of Service: May 03, 2024 Billing Provider: YASIR HENDERSON MD Common Visit Codes: [id number] INP/OBS CARE (HIGH) Secondary Visit Codes: [id number] CARE PLAN 30 MINUTES YASIR HENDERSON MD May 03, 2024 16:32
[2024-05-03] MEDS: LACTATED RINGER'S 1,000 ML IV SCH (16:45)
[2024-05-03] MEDS ORDERED: DEXTROSE (50%) 50ML SYRG IV PRN (16:45)
--- NOTE | 2024-05-03 16:53 | DVHHP ---
ADMIT DATE: 05/03/2024 HISTORY OF PRESENT ILLNESS: The patient is a 73-year-old lady who was admitted after she underwent surgery on the right knee for right patellar fracture. The patient at this time denies any significant pain. The leg is currently in a knee immobilizer. She denies any chest pain, shortness of breath, nausea or vomiting. REVIEW OF SYSTEMS: Review of rest of systems are otherwise currently negative. PAST MEDICAL HISTORY: Significant for diabetes, hypertension, hypothyroidism, hyperlipidemia and status post pacemaker as well as dementia. MEDICATIONS: Include Eliquis, amiodarone, levothyroxine, Aricept, lisinopril, lovastatin, Namenda, metformin, omeprazole, and trazodone. ALLERGIES: No known drug allergies. SOCIAL HISTORY: Denies smoking or alcohol. Lives with her daughter. FAMILY HISTORY: Negative. PHYSICAL EXAMINATION: GENERAL: The patient is awake, alert. VITAL SIGNS: Temperature of 97, pulse 69 per minute, blood pressure 130/66. SHEENT: Unremarkable. NECK: There is no JVD, no pedal edema. LUNGS: Equal bilaterally. No added sounds. CARDIOVASCULAR: S1, S2 is regular, no murmurs. ABDOMEN: Soft. There is no organomegaly. NEUROLOGIC: Nonfocal. MUSCULOSKELETAL: The right leg is currently in a knee immobilizer. ASSESSMENT AND PLAN: * Diabetes mellitus for which she will be placed on sliding scale insulin. * Hypothyroidism. She will resume levothyroxine. * Hypertension. Blood pressure will be monitored. * Obesity. * Hyperlipidemia. * Dementia. * Status post surgery for right knee patellar fracture. The patient will be followed up by Dr. Helm. Advance care planning, the patient is a full code. Time spent was 19 minutes. MD CLOTILDE Hackett/TA TID: [id number] RECEIPT: [id number]
[2024-05-03 17:00] VITALS: BP 120/57; PULSE 58; RESP 17; TEMP 97.3; O2SAT 98
[2024-05-03] MEDS: InsuLIN REG 1unit/0.01ml Soln (100units/ml) SC SCH (17:00)
[2024-05-03] MEDS: ACCU-CHEK COMFORT CURVE STRIP VI SCH (17:00)
[2024-05-03] MEDS: ACETAMINOPHEN 325 MG TAB PO PRN (17:20)
[2024-05-03 20:00] VITALS: PULSE 68
[2024-05-03] MEDS: KETOROLAC TROMETH 30 MG/ML 1ML VIAL IV ONE (20:04)
[2024-05-03] MEDS: ceFAZolin 1GM/50ML 50 ML IV SCH (20:04)
[2024-05-03 21:00] VITALS: BP 125/56; PULSE 75; RESP 18; TEMP 98.4; O2SAT 96
[2024-05-03] MEDS: MEMANTINE HCL 5 MG TAB PO SCH (21:24)
[2024-05-03] MEDS: DONEPEZIL HYDROCHLORIDE 5 MG TAB PO SCH (21:25)
[2024-05-04] VITALS (8 sets, daily range): BP systolic 107–129; BP diastolic 48–68; PULSE 68–79; RESP 17–20; TEMP 97.1–98.2; O2SAT 94–96
[2024-05-04 05:00] LABS: Basophils # (auto) 0 10 ^3/uL (0-0.2); Basophils % (auto) 0.2 % (0.0-2.0); Eosinophils # (auto) 0.1 10 ^3/uL (0-0.8); Eosinophils % (auto) 1.2 % (0.0-7.0); Hematocrit 34.3 % (36.0-46.0); Hemoglobin 11.1 g/dL (12.2-16.2); Lymphocytes # (auto) 1.1 10 ^3/uL (0.4-5.4); Lymphocytes % (auto) 14.8 % (10.0-50.0); Mean Corpuscular Hemoglobin 28.9 pg (28.0-32.0); Mean Corpuscular Hgb Conc. 32.3 g/dL (32.0-36.0); Mean Corpuscular Volume 89.7 fL (80.0-100.0); Monocytes # (auto) 0.5 10 ^3/uL (0-1.3); Monocytes % (auto) 6.9 % (0.0-12.0); Neutrophils # (auto) 5.8 10 ^3/uL (1.6-8.6); Neutrophils % (auto) 76.9 % (37.0-80.0); Platelet Count (auto) 183 10^3/uL (140-450); Red Blood Cells 3.82 10^6/uL (4.0-5.20); Red Cell Distribution Width 14.6 % (11.8-14.3); White Blood Cell 7.6 10^3/uL (4.4-10.8)
[2024-05-04 05:18] LABS: Albumin 3.6 g/dL (3.2-4.8); Alkaline Phosphatase 83 U/L (46-116); Anion Gap 6 (5-15); BUN/Creatinine Ratio 14.6 (10.0-20.0); Blood Urea Nitrogen 13 mg/dL (9-23); Calcium 9.1 mg/dL (8.7-10.4); Carbon Dioxide 25 mmol/L (20-31); Chloride 105 mmol/L (98-107); Glucose 105 mg/dL (74-106); Sodium 136 mmol/L (136-145)
[2024-05-04 05:19] LABS: Bilirubin, Total 0.7 mg/dL (0.2-1.0); Total Protein 5.7 g/dL (5.7-8.2)
[2024-05-04 05:21] LABS: Alanine Aminotransferase < 9 U/L (7-40); Aspartate Aminotransferase 12 U/L (13-40)
[2024-05-04] MEDS: LEVOTHYROXINE SODIUM 112 MCG TAB PO SCH (06:24)
[2024-05-04] MEDS: PANTOPRAZOLE 40 MG TAB PO SCH (06:24)
[2024-05-04] MEDS: HYDROcodone-ACET 5/325MG TAB PO PRN (10:21)
[2024-05-04] MEDS: AMIODARONE HCL 200 MG TAB PO SCH (10:21)
--- NOTE | 2024-05-04 10:26 | DVHPN2 ---
Progress Note Date Seen: May 04, 2024 Medical Necessity Reason Pt with a Central, PICC or Fol: Yes The following are medically ne: Del Cid Catheter Reason for del cid catheter: Strict I&O Subjective Patient reports: No new complaints Review of Systems: HEENT:Normal, CVS:Normal, RESPIRATORY:Normal, GI:Normal, :Normal, MSK:Normal, NEURO:Normal Objective vital signs Vital Sign Date Time Temp Pulse Resp B/P (MAP) Pulse Ox O2 Delivery O2 Flow Rate FiO2 05/04/24 09:00 97.3 69 17 112/59 (76) 94 97.3 05/04/24 08:05 Room Air* 0 21 Total Intake and Output 05/03/24 05/03/24 05/04/24 15:00 23:00 07:00 Intake Total 200 ml 50 ml 550 ml Output Total 550 ml Balance 200 ml 50 ml 0 ml medications Current Medications Medications Dose Ordered Sig/Lorna Route Start Time Stop Time Status Last Admin Dose Admin Acetaminophen 650 mg Q6HP PRN PO 05/03/24 14:30 05/03/24 17:20 650 MG Ondansetron HCl 4 mg Q6HP PRN IV 05/03/24 14:30 Bisacodyl 5 mg Q12HP PRN PO 05/03/24 14:30 Nitroglycerin 0.4 mg Q5MINP PRN SL 05/03/24 14:30 Lactated Ringer's 1,000 ml @ 75 mls/hr [id number] IV 05/03/24 16:45 05/03/24 16:45 75 MLS/HR Amiodarone HCl 200 mg DAILY PO 05/04/24 10:00 05/04/24 10:21 200 MG Memantine 10 mg Q12HR PO 05/03/24 22:00 05/04/24 10:22 10 MG Donepezil HCl 10 mg HS PO 05/03/24 22:00 05/03/24 21:25 10 MG Levothyroxine Sodium 112 mcg QAM@0600 PO 05/04/24 06:00 05/04/24 06:24 112 MCG Pantoprazole Sodium 40 mg DAILY@0600 PO 05/04/24 06:00 05/04/24 06:24 40 MG Diagnostic Test (Pha) 1 strip ACHS 05/03/24 17:00 05/04/24 06:25 1 STRIP Insulin Human Regular ACHS SC 05/03/24 17:00 Dextrose 50 ml UD PRN IV 05/03/24 16:45 Acetaminophen/ Hydrocodone Bitart 1 tab Q6HPRN PRN PO 05/03/24 16:45 05/04/24 10:21 1 TAB Examination: GENERAL:Normal, HEENT:Normal, NECK:Normal, LUNGS:Normal, CVS:Normal, ABDOMEN:Normal, MSK:Normal, MSK:Abnormal (right knee immobilzer), SKIN:Normal, NEURO:Normal, :Normal laboratory and microbiology Laboratory Tests 05/04/24 04:29 Test 05/04/24 04:29 Range/Units Serum Glucose 105 74-106 mg/dL Problem List/Assessment/Plan Problem List/Assessment/Plan * Diabetes mellitus for which she will be placed on sliding scale insulin. * Hypothyroidism. She will resume levothyroxine. * Hypertension. Blood pressure will be monitored. * Obesity. * Hyperlipidemia. * Dementia. * s/p pacer * s/p a fib: resume eliquis * Status post surgery for right knee patellar fracture. The patient will be followed up by Dr. Helm. Advance care planning, the patient is a full code- time spent 19 mins Plan discussed with: Patient, Daughter My Orders My Orders Orders - YASIR HENDERSON MD Procedure Category Date Status Time Lactated Ringer's PHA 05/03/24 In Process 16:45 Consistent DIET 05/03/24 Transmitted Carb(Ccho)Diabetes Dinner Amiodarone Tablet PHA 05/04/24 In Process (Cordarone Tablet) 10:00 Memantine Tablet PHA 05/03/24 In Process (Namenda Tablet) 22:00 Donepezil Tablet PHA 05/03/24 In Process (Aricept Tablet) 22:00 Levothyroxine Tablet PHA 05/04/24 In Process (Synthroid Tablet) 06:00 Pantoprazole Tablet PHA 05/04/24 In Process (Protonix Tablet) 06:00 Glucose Blood PHA 05/03/24 In Process (Accu-Chek Comfort 17:00 Insulin R (Human) PHA 05/03/24 In Process (Insulin R) 17:00 Dextrose 50% Syringe PHA 05/03/24 In Process 16:45 Hydrocodone-Acet PHA 05/03/24 In Process 5/325mg Tab ([place] 16:45 * [place] CONS 05/04/24 Transmitted Consult Apixaban (Eliquis) PHA 05/04/24 Transmitted 22:00 Date of Service: May 04, 2024 Billing Provider: YASIR HENDERSON MD Common Visit Codes: [id number] INP/OBS CARE(HIGH) Secondary Visit Codes: [id number] CARE PLAN 30 MINUTES YASIR HENDERSON MD May 04, 2024 10:26
--- NOTE | 2024-05-04 12:58 | DVHPN2 ---
Date of Progress Note Date of Progress Note Date of Progress Note: 05/04/24 Date of Admission Date of Admission Date of Admission: Date of Admission: May 03, 2024 at 15:03 Overnight Events Overnight events Overnight Events pt kelsey pain on PO meds Family History Family History Family History: Cardiovascular disease Hypertension Allergies: Coded Allergies: NO KNOWN ALLERGIES (Unverified , 03/24/23) Home Meds Reported Medications Donepezil Hydrochloride (DONEPEZIL HCL) 10 Mg Tab, 10 MG PO HS, TAB 05/01/24 Trazodone Hcl (Trazodone Hcl) 100 Mg Tab, 100 MG PO QPM, TAB 05/01/24 Memantine Hydrochloride (Memantine HCl) 10 Mg Tab, 10 MG PO BID, TAB 05/01/24 Amiodarone Hcl (Amiodarone Hcl) 200 Mg Tab, 200 MG PO DAILY, TAB 12/17/23 Loratadine (Claritin) 10 Mg Tab, 1 TAB PO QPM for allergies, #30 TAB 5 Refills 06/07/23 Omeprazole (Omeprazole) 20 Mg Cap, 40 MG PO DAILY for gerd, CAP 06/07/23 Baclofen (Baclofen) 20 Mg Tab, 10 MG PO DAILY, TAB 03/04/23 Levothyroxine Sodium (Levothyroxine Sodium) 112 Mcg Cap, 112 MCG PO DAILY, CAP 03/04/23 Cholecalciferol (VITAMIN D3) 2,000 Unit Tab, 1 CAP PO DAILY 02/24/23 Metformin Hydrochloride (Metformin Hcl) 1,000 Mg Tab, 1 TAB PO DAILY 02/23/23 Lovastatin (Lovastatin) 20 Mg Tab, 1 TAB PO DAILY 02/23/23 Lisinopril (Lisinopril) 40 Mg Tab, 1 TAB PO DAILY 02/23/23 Apixaban Base (ELIQUIS) 5 Mg Tab, 1 TAB PO BID for Last day to take 06/08/23 02/23/23 Discontinued Reported Medications Donepezil Hydrochloride (DONEPEZIL HCL) 5 Mg Tab, 1 TAB PO DAILY 02/24/23 Trazodone Hcl (Trazodone Hcl) 50 Mg Tab, 1 TAB PO 02/24/23 Memantine Hydrochloride (Memantine HCl) 5 Mg Tab, 1 TAB PO BID 02/23/23 Current Medications Current Medications Medications (Trade) Dose Ordered Sig/Lorna Route PRN Reason Start Time Stop Time Status Last Admin Hydromorphone HCl (Dilaudid Injection) 0.5 mg Q10M PRN IV SEVERE PAIN (7-10 PAIN SCALE) 05/03/24 14:30 05/03/24 16:26 DC Morphine Sulfate 2 mg Q4H PRN IV BREAKTHRU PAIN SCALE 7-10 05/03/24 14:30 05/03/24 18:31 DC Hydromorphone HCl (Dilaudid Injection) 0.25 mg Q10M PRN IV MODERATE PAIN (4-6 PAIN SCALE) 05/03/24 14:30 05/03/24 16:26 DC Morphine Sulfate 1 mg Q30M PRN IV SEVERE PAIN (7-10 PAIN SCALE) 05/03/24 14:30 05/03/24 16:31 DC Lactated Ringer's 1,000 ml @ 100 mls/hr Q10H IV 05/03/24 14:30 05/03/24 16:38 DC Cefazolin Sodium 50 ml @ 50 mls/hr Q6H IV 05/03/24 14:30 05/04/24 03:29 DC 05/04/24 08:20 Acetaminophen (Tylenol Tablet) 650 mg Q6HP PRN PO MILD PAIN OR TEMP >101 05/03/24 14:30 05/03/24 17:20 Ondansetron HCl (Zofran) 4 mg Q6HP PRN IV NAUSEA / VOMITING 05/03/24 14:30 Bisacodyl (Dulcolax EC Tablet) 5 mg Q12HP PRN PO FOR CONSTIPATION 05/03/24 14:30 Nitroglycerin (Ntrostat Sublingual) 0.4 mg Q5MINP PRN SL FOR CHEST PAIN 05/03/24 14:30 Lactated Ringer's 1,000 ml @ 75 mls/hr [id number] IV 05/03/24 16:45 05/04/24 10:24 DC 05/03/24 16:45 Amiodarone HCl (Cordarone Tablet) 200 mg DAILY PO 05/04/24 10:00 05/04/24 10:21 Memantine (Namenda Tablet) 10 mg Q12HR PO 05/03/24 22:00 05/04/24 10:22 Donepezil HCl (Aricept Tablet) 10 mg HS PO 05/03/24 22:00 05/03/24 21:25 Levothyroxine Sodium (Synthroid Tablet) 112 mcg QAM@0600 PO 05/04/24 06:00 05/04/24 06:24 Pantoprazole Sodium (Protonix Tablet) 40 mg DAILY@0600 PO 05/04/24 06:00 05/04/24 06:24 Diagnostic Test (Pha) (Accu-Chek Comfort Curve T) 1 strip ACHS 05/03/24 17:00 05/04/24 11:07 Insulin Human Regular (InsuLIN R) ACHS SC 05/03/24 17:00 Dextrose 50 ml UD PRN IV Blood Sugar LESS THAN 60 05/03/24 16:45 Acetaminophen/ Hydrocodone Bitart ([place] 5/325MG Tab) 1 tab Q6HPRN PRN PO MODERATE PAIN (4-6 PAIN SCALE) 05/03/24 16:45 05/04/24 10:21 Apixaban (Eliquis) 5 mg BID PO 05/04/24 22:00 Physical Examination General Examination: Last Vital sign Vital Signs Date Time Temp Pulse Resp B/P (MAP) Pulse Ox O2 Delivery O2 Flow Rate FiO2 05/04/24 09:00 97.3 69 17 112/59 (76) 94 97.3 05/04/24 08:05 Room Air* 0 21 General: General: No apparent distress, appears comfortable. Cooperative. Extremities: Leg in knee immobilzer no drainage, NVI Skin: no drainage Neurological Examination: Neurological Examination: Mental Status: Cranial Nerves: Motor Examination: Reflexes: Sensory: Coordination: Gait: NVI Labs: Labs: Laboratory Tests Test 05/01/24 13:59 05/03/24 12:25 05/03/24 14:17 05/03/24 21:29 Range/Units White Blood Count 7.7 4.4-10.8 10^3/uL Red Blood Count 4.48 4.0-5.20 10^6/uL Hemoglobin 13.4 12.2-16.2 g/dL Hematocrit 40.1 36.0-46.0 % Mean Corpuscular Volume 89.5 80.0-100.0 fL Mean Corpuscular Hemoglobin 29.8 28.0-32.0 pg Mean Corpuscular Hemoglobin Concent 33.3 32.0-36.0 g/dL Red Cell Distribution Width 14.4 H 11.8-14.3 % Platelet Count 264 140-450 10^3/uL Mean Platelet Volume 7.1 6.9-10.8 fL Neutrophils (%) (Auto) 67.4 37.0-80.0 % Lymphocytes (%) (Auto) 25.8 10.0-50.0 % Monocytes (%) (Auto) 5.0 0.0-12.0 % Eosinophils (%) (Auto) 1.3 0.0-7.0 % Basophils (%) (Auto) 0.5 0.0-2.0 % Neutrophils # (Auto) 5.2 1.6-8.6 10 ^3/uL Lymphocytes # (Auto) 2.0 0.4-5.4 10 ^3/uL Monocytes # (Auto) 0.4 0-1.3 10 ^3/uL Eosinophils # (Auto) 0.1 0-0.8 10 ^3/uL Basophils # (Auto) 0 0-0.2 10 ^3/uL Nucleated Red Blood Cells 0.0 % Prothrombin Time 10.1 9.3-11.8 sec Prothrombin Time INR 0.95 0.9-1.15 Activated Partial Thromboplast Time 27.0 24.5-34.5 SEC Urine Color Light-yellow Yellow Urine Clarity Clear Clear Urine pH 5.5 5.0-9.0 Urine Specific [place] 1.011 1.001-1.035 Urine Protein Negative Negative Urine Ketones Negative Negative Urine Blood Trace H Negative /uL Urine Nitrite Negative Negative Urine Bilirubin Negative Negative Urine Urobilinogen Normal Negative mg/dL Urine Leukocyte Esterase Negative Negative /uL Urine RBC 1 0 - 4 /hpf Urine Microscopic WBC 2 0-5 /HPF Urine Squamous Epithelial Cells Few <5 /hpf Urine Bacteria Few H None Seen /hpf Urine Glucose Normal Normal mg/dL Sodium Level 139 136-145 mmol/L Potassium Level 4.4 3.5-5.1 mmol/L Chloride Level 102 98-107 mmol/L Carbon Dioxide Level 30 20-31 mmol/L Anion Gap 7 5-15 Blood Urea Nitrogen 13 9-23 mg/dL Creatinine 0.93 0.550-1.02 mg/dL Glomerular Filtration Rate Calc 66 >90 mL/min BUN/Creatinine Ratio 14.0 10.0-20.0 Serum Glucose 103 74-106 mg/dL Calcium Level 10.9 H 8.7-10.4 mg/dL Total Bilirubin 0.9 0.2-1.0 mg/dL Aspartate Amino Transferase (AST) 16 13-40 U/L Alanine Aminotransferase (ALT) 13 7-40 U/L Alkaline Phosphatase 102 46-116 U/L Total Protein 7.7 5.7-8.2 g/dL Albumin 4.8 3.2-4.8 g/dL POC Glucose 91 104 123 H 70-106 mg/dl Test 05/04/24 04:29 05/04/24 06:27 05/04/24 11:12 Range/Units White Blood Count 7.6 4.4-10.8 10^3/uL Red Blood Count 3.82 L 4.0-5.20 10^6/uL Hemoglobin 11.1 #L 12.2-16.2 g/dL Hematocrit 34.3 #L 36.0-46.0 % Mean Corpuscular Volume 89.7 80.0-100.0 fL Mean Corpuscular Hemoglobin 28.9 28.0-32.0 pg Mean Corpuscular Hemoglobin Concent 32.3 32.0-36.0 g/dL Red Cell Distribution Width 14.6 H 11.8-14.3 % Platelet Count 183 140-450 10^3/uL Mean Platelet Volume 7.1 6.9-10.8 fL Neutrophils (%) (Auto) 76.9 37.0-80.0 % Lymphocytes (%) (Auto) 14.8 10.0-50.0 % Monocytes (%) (Auto) 6.9 0.0-12.0 % Eosinophils (%) (Auto) 1.2 0.0-7.0 % Basophils (%) (Auto) 0.2 0.0-2.0 % Neutrophils # (Auto) 5.8 1.6-8.6 10 ^3/uL Lymphocytes # (Auto) 1.1 0.4-5.4 10 ^3/uL Monocytes # (Auto) 0.5 0-1.3 10 ^3/uL Eosinophils # (Auto) 0.1 0-0.8 10 ^3/uL Basophils # (Auto) 0 0-0.2 10 ^3/uL Nucleated Red Blood Cells 0.0 % Sodium Level 136 136-145 mmol/L Potassium Level 4.0 3.5-5.1 mmol/L Chloride Level 105 98-107 mmol/L Carbon Dioxide Level 25 20-31 mmol/L Anion Gap 6 5-15 Blood Urea Nitrogen 13 9-23 mg/dL Creatinine 0.89 0.550-1.02 mg/dL Glomerular Filtration Rate Calc 69 >90 mL/min BUN/Creatinine Ratio 14.6 10.0-20.0 Serum Glucose 105 74-106 mg/dL Hemoglobin A1c 5.9 H <5.7 % A1C Calcium Level 9.1 8.7-10.4 mg/dL Total Bilirubin 0.7 0.2-1.0 mg/dL Aspartate Amino Transferase (AST) 12 L 13-40 U/L Alanine Aminotransferase (ALT) < 9 7-40 U/L Alkaline Phosphatase 83 46-116 U/L Total Protein 5.7 5.7-8.2 g/dL Albumin 3.6 3.2-4.8 g/dL Thyroid Stimulating Hormone (TSH) 4.66 0.55-4.78 uIU/mL POC Glucose 109 H 120 H 70-106 mg/dl Assessment/Plan Assessment/Plan Assessment and Plan:Adriana Farris is a 73 year old female POD 1 s/p ORIF patella fracture 1) WBAT with knee immobilzer, PUW, full assist Plan discussed with: Patient KENDALL PETIT MD May 04, 2024 12:58
[2024-05-04] MEDS: APIXABAN 5 MG TAB PO SCH (22:27)
[2024-05-05] VITALS (7 sets, daily range): BP systolic 110–150; BP diastolic 58–75; PULSE 67–78; RESP 16–20; TEMP 36.6; O2SAT 93–96
[2024-05-05 07:33] LABS: Hematocrit 35.1 % (36.0-46.0); Hemoglobin 11.3 g/dL (12.2-16.2)
[2024-05-05] MEDS ORDERED: DOCU-94 PO (13:07)
[2024-05-05] MEDS ORDERED: HYDR-4902 PO (13:07)
--- NOTE | 2024-05-05 13:16 | DVHDS2 ---
Discharge Summary Date of Admission May 03, 2024 at 15:03 Date of Discharge: May 05, 2024 Admitting Diagnosis Fracture of right patella Labs/Diagnostic Data: Laboratory Results Test 05/05/24 10:56 05/05/24 07:01 05/04/24 04:29 05/01/24 13:59 POC Glucose 120 mg/dl (70-106) Hemoglobin 11.3 g/dL (12.2-16.2) Hematocrit 35.1 % (36.0-46.0) White Blood Count 7.6 10^3/uL (4.4-10.8) Red Blood Count 3.82 10^6/uL (4.0-5.20) Mean Corpuscular Volume 89.7 fL (80.0-100.0) Mean Corpuscular Hemoglobin 28.9 pg (28.0-32.0) Mean Corpuscular Hemoglobin Concent 32.3 g/dL (32.0-36.0) Red Cell Distribution Width 14.6 % (11.8-14.3) Platelet Count 183 10^3/uL (140-450) Mean Platelet Volume 7.1 fL (6.9-10.8) Neutrophils (%) (Auto) 76.9 % (37.0-80.0) Lymphocytes (%) (Auto) 14.8 % (10.0-50.0) Monocytes (%) (Auto) 6.9 % (0.0-12.0) Eosinophils (%) (Auto) 1.2 % (0.0-7.0) Basophils (%) (Auto) 0.2 % (0.0-2.0) Neutrophils # (Auto) 5.8 10 ^3/uL (1.6-8.6) Lymphocytes # (Auto) 1.1 10 ^3/uL (0.4-5.4) Monocytes # (Auto) 0.5 10 ^3/uL (0-1.3) Eosinophils # (Auto) 0.1 10 ^3/uL (0-0.8) Basophils # (Auto) 0 10 ^3/uL (0-0.2) Nucleated Red Blood Cells 0.0 % Sodium Level 136 mmol/L (136-145) Potassium Level 4.0 mmol/L (3.5-5.1) Chloride Level 105 mmol/L (98-107) Carbon Dioxide Level 25 mmol/L (20-31) Anion Gap 6 (5-15) Blood Urea Nitrogen 13 mg/dL (9-23) Creatinine 0.89 mg/dL (0.550-1.02) Glomerular Filtration Rate Calc 69 mL/min (>90) BUN/Creatinine Ratio 14.6 (10.0-20.0) Serum Glucose 105 mg/dL (74-106) Hemoglobin A1c 5.9 % A1C (<5.7) Calcium Level 9.1 mg/dL (8.7-10.4) Total Bilirubin 0.7 mg/dL (0.2-1.0) Aspartate Amino Transferase (AST) 12 U/L (13-40) Alanine Aminotransferase (ALT) < 9 U/L (7-40) Alkaline Phosphatase 83 U/L (46-116) Total Protein 5.7 g/dL (5.7-8.2) Albumin 3.6 g/dL (3.2-4.8) Thyroid Stimulating Hormone (TSH) 4.66 uIU/mL (0.55-4.78) Prothrombin Time 10.1 sec (9.3-11.8) Prothrombin Time INR 0.95 (0.9-1.15) Activated Partial Thromboplast Time 27.0 SEC (24.5-34.5) Urine Color Light-yellow (Yellow) Urine Clarity Clear (Clear) Urine pH 5.5 (5.0-9.0) Urine Specific [place] 1.011 (1.001-1.035) Urine Protein Negative (Negative) Urine Ketones Negative (Negative) Urine Blood Trace /uL (Negative) Urine Nitrite Negative (Negative) Urine Bilirubin Negative (Negative) Urine Urobilinogen Normal mg/dL (Negative) Urine Leukocyte Esterase Negative /uL (Negative) Urine RBC 1 /hpf (0 - 4) Urine Microscopic WBC 2 /HPF (0-5) Urine Squamous Epithelial Cells Few /hpf (<5) Urine Bacteria Few /hpf (None Seen) Urine Glucose Normal mg/dL (Normal) Other Laboratory Tests 05/05/24 07:01 05/04/24 04:29 Brief Hx & Hospital Course: HISTORY OF PRESENT ILLNESS: The patient is a 73-year-old lady who was admitted after she underwent surgery on the right knee for right patellar fracture. The patient at this time denies any significant pain. The leg is currently in a knee immobilizer. She denies any chest pain, shortness of breath, nausea or vomiting. Course of hospitalization: Patient was right knee is in an immobilizer. She has been ambulating with physical therapy approximately 10-15 feet. She was tolerating oral intake without any problems. Aryan wrap dry and intact. Patient is Eliquis was restarted in the hospital without any signs of bleeding. Patient will be discharged home with home physical therapy once cleared by Orthopedic surgery. Patient has a home walker, also has a wheelchair that was provided during this hospitalization. She will continue all previous home medications as well as using pain management in the form of [place] 5/325 q.6 hours as needed for [id number] pain. Patient will also be provided Colace 100 mg p.o. twice a day for constipation greater than two days. Long discussion was made with the patient was well as daughter who was bedside. The patient has a history of dementia and has a family member with her at all times. All questions answered. Physical examination General: Alert and Oriented x3. No acute distress. Well-nourished. Obese Eyes: EOMI. Anicteric. HENT: Moist mucous membranes. Lungs: Clear to auscultation bilaterally. No accessory muscle use. Cardiovascular: Regular rate and rhythm. No murmur. No JVD. Abdomen: Soft, non-tender and non-distended. No palpable masses. Extremities: No edema. Non-tender. Skin: No rashes or lesions. Warm. Neurologic: No focal neurological deficits. CN II-XII grossly intact, but not individually tested. Psychiatric: Cooperative. Appropriate mood and affect. Total time spent with patient discussing and formulating plan of care: 35 minutes. This medical document was created using an electronic medical record system with [employer] dictation system. Although this document has been carefully reviewed, there may still be some phonetic and typographical errors. These areas are purely typographical due to imperfections of the software programs, and do not reflect any compromise in the patient's medical care. Condition at Discharge: Fair Final Diagnosis/Problems List Fracture right patella Secondary diagnosis * Diabetes mellitus * Hypothyroidism. * Hypertension. * Obesity. * Hyperlipidemia. * Dementia. ? Underlying AFib Discharge Disposition: Home with Health Services Discharge Instruct/Medications Diet: Consistent carbohydrate, Cardiac 2g Na,low cholest (2 gm sodium, low cholesterol) Activity: No Restrictions, As Tolerated Follow Up/Referral: Orthopedic surgery in one week Medications: Refer to medication reconciliation form 36 Discharge Statement: "Patient was advised to return to the ER or call 911 if any headaches, dizziness, shortness of breath, chest pain, abdominal pain, bleeding, fevers, or worsening of medical condition. Patient was counseled about treatment plan, medications, possible side effects, patientverbalized understanding. All questions were answered to the best of my ability. This discharge took greater then 30 minutes in planning, reviewing documentation, counseling the patient, and discussing with other team members." ASSESSMENT ASSESSMENT Assessment same Date of Service: May 05, 2024 Billing Provider: ERNESTINA CORDON NP Common Visit Codes: 83846-NOG/OBS DISCH DAY >30min ERNESTINA CORDON NP May 05, 2024 13:16
== END 2024-05-05 18:14 | disposition home health service (06) | DRG 516 ==
LOC: SUR 09:58 → OVERFLOW 15:03 → TELE-CENTR 16:11
PROVIDERS: ADMIT Nurse Practitioner Acute Care; ATTEND Nurse Practitioner Acute Care
PROC: 0QSD04Z Reposition Right Patella with Internal Fixation Device, Open Approach (ICD-10-PCS; principal; 2024-05-03 13:01)
DX: S82.001A Unspecified fracture of right patella, initial encounter for closed fracture (principal); Z68.41 Body mass index [BMI] 40.0-44.9, adult; E11.9 Type 2 diabetes mellitus without complications; E78.5 Hyperlipidemia, unspecified; E03.9 Hypothyroidism, unspecified; F03.90 Unspecified dementia, unspecified severity, without behavioral disturbance, psychotic disturbance, mood disturbance, and anxiety; I10 Essential (primary) hypertension; E66.9 Obesity, unspecified; K59.00 Constipation, unspecified; Z95.0 Presence of cardiac pacemaker; Z82.49 Family history of ischemic heart disease and other diseases of the circulatory system; Z79.4 Long term (current) use of insulin
CPT/HCPCS: 36415; 73560; 76000; 80053; 81001; 82962; 83036; 84443; 85014; 85018; 85025; 85610; 85730; 97116; 97163; 97530; G0378; J1885; J2250; J2405; J2704; J3490

== ENCOUNTER → 2024-07-25 | Outpatient (CLI) | payer OTHER, MEDICAID ==
[~2024-07-25] MED LIST changes: +DOCU-94 PO; +HYDR-4902 PO
--- NOTE | 2024-07-26 12:38 | DVHSR ---
APPROVED REPORT EXAM: Two-dimensional and M-mode echocardiogram with Doppler and color Doppler. DIMENSIONS LVDd4.2 (3.8-5.7cm)LA (2D)3.8 (1.9-4.0cm)Aortic Root3.1 (2.0-3.7cm) LVDs2.8 (2.5-4.0cm)LA (MM) (1.9-4.0cm)Aortic Cusp Exc1.6 (1.5-2.0cm) EF (%) 64.2 (55-70%)Rt. Atrium3.5 (1.9-4.0cm)Asc. Aorta cm IVSd1.0 (0.7-1.1cm)RV (D)2.5 (1.8-2.4cm) PWd1.0 (0.7-1.1cm) Mitral Valve MitralMitral Stenosis E wave0.60m/sMV Mean GR.mmHg A wave0.86m/sMV Peak GR.mmHg E/A ratio0.72D MVAcm2 DECEL [id number] 1/2 [place] Aortic Valve Aortic ValveAortic Stenosis V10.99m/[place] Mean GR.5mmHg V21.85m/[place] Peak GR.14mmHg Pulmonic Valve V20.77m/s Tricuspid Valve TR Velocity2.07m/s [id number] ATRIA The left atrial size is normal. The right atrium size is normal. MITRAL VALVE Mitral annular calcification is mild. Mitral regurgitation is trace to mild. PULMONIC VALVE The pulmonic valve is not well visualized. TRICUSPID VALVE The tricuspid valve is grossly normal. AORTIC VALVE The aortic valve opens well. No aortic regurgitation is present. GREAT VESSELS The aortic root is normal size. PERICARDIAL EFFUSION There is no pericardial effusion. Conclusion EF >55% MILD MAC MILD MR
== END | disposition home or self-care (01) ==
LOC: Rad HDHVI 11:02
PROVIDERS: ATTEND Internal Medicine Cardiovascular Disease
DX: I34.0 Nonrheumatic mitral (valve) insufficiency (principal); I10 Essential (primary) hypertension; E78.5 Hyperlipidemia, unspecified
CPT/HCPCS: 93306